=== PATIENT | female | born 1980 | race Caucasian/White ===

== ENCOUNTER 2018-02-24 09:54 | Emergency (ER) | payer OTHER ==
[~2018-02-24] VITALS: Ht 175.3 cm; Wt 82.6 kg
== END 2018-02-24 14:46 | disposition home or self-care (01) ==
LOC: ER 09:54
DX: J11.1 Influenza due to unidentified influenza virus with other respiratory manifestations (principal)

== ENCOUNTER 2018-11-16 15:19 | Inpatient (IN) | payer OTHER ==
[~2018-11-16] VITALS: Ht 152.4 cm; Wt 93.9 kg
[2018-11-23] MEDS ORDERED: PRENATAL 19 TA1 EACH PO (10:19)
[2018-11-23] MEDS ORDERED: ASA81 MG PO (10:20)
[2018-11-27] MEDS ORDERED: IBUPROFEN600 MG PO ×2 (11:40→11:51)
[2018-11-27] MEDS ORDERED: INTEGRA CAPSUL1 EACH PO (11:41)
[2018-11-27] MEDS ORDERED: GAS-X125 MG PO (11:51)
[2018-11-27] MEDS ORDERED: COLACE100 MG PO (11:51)
[2018-11-27] MEDS ORDERED: INTEGRA PLUS C1 EACH PO (11:51)
== END 2018-11-27 13:38 | disposition home or self-care (01) | DRG 788 ==
LOC: OB/GYN 11-17 08:15 → LDR 11-23 07:00 → OB/GYN 11-24 19:24
PROVIDERS: ADMIT Obstetrics & Gynecology
PROC: 10907ZC Drainage of Amniotic Fluid, Therapeutic from Products of Conception, Via Natural or Artificial Opening (ICD-10-PCS; 2018-11-23)
PROC: 3E0P7VZ Introduction of Hormone into Female Reproductive, Via Natural or Artificial Opening (ICD-10-PCS; 2018-11-23)
PROC: 3E033VJ Introduction of Other Hormone into Peripheral Vein, Percutaneous Approach (ICD-10-PCS; 2018-11-23)
PROC: 4A1HXCZ Monitoring of Products of Conception, Cardiac Rate, External Approach (ICD-10-PCS; 2018-11-23)
PROC: 10D00Z1 Extraction of Products of Conception, Low, Open Approach (ICD-10-PCS; principal; 2018-11-24 18:00)
DX: O82 Encounter for cesarean delivery without indication (principal); O64.2XX0 Obstructed labor due to face presentation, not applicable or unspecified; O61.0 Failed medical induction of labor; Z3A.39 39 weeks gestation of pregnancy; Z37.0 Single live birth

== ENCOUNTER 2019-11-25 14:27 | Outpatient (CLI) | payer OTHER ==
[~2019-11-25 14:27] MED LIST: ASA81 MG PO; COLACE100 MG PO; GAS-X125 MG PO; IBUPROFEN600 MG PO; INTEGRA CAPSUL1 EACH PO; INTEGRA PLUS C1 EACH PO; PRENATAL 19 TA1 EACH PO
== END 2019-11-25 14:33 | disposition home or self-care (01) ==
LOC: MAMO-SONO 14:27
PROVIDERS: ATTEND Obstetrics & Gynecology
DX: Z12.31 Encounter for screening mammogram for malignant neoplasm of breast (principal); N60.11 Diffuse cystic mastopathy of right breast; N60.12 Diffuse cystic mastopathy of left breast; R10.2 Pelvic and perineal pain

== ENCOUNTER 2021-11-01 15:14 | Outpatient (CLI) | payer OTHER | END 2021-11-01 15:23 | disposition home or self-care (01) | LOC: RAD 15:14 | DX: M99.01 Segmental and somatic dysfunction of cervical region (principal); M99.02 Segmental and somatic dysfunction of thoracic region; M99.03 Segmental and somatic dysfunction of lumbar region; M99.04 Segmental and somatic dysfunction of sacral region; M99.05 Segmental and somatic dysfunction of pelvic region ==

== ENCOUNTER 2022-03-11 13:36 | Emergency (ER) | payer OTHER ==
[~2022-03-11] VITALS: Ht 177.8 cm; Wt 81.6 kg
== END 2022-03-11 15:51 | disposition home or self-care (01) ==
LOC: ER 13:36
DX: J06.9 Acute upper respiratory infection, unspecified (principal); Z20.822 Contact with and (suspected) exposure to COVID-19; Z91.040 Latex allergy status